=== PATIENT | male | born 1965 | race Caucasian/White ===

== ENCOUNTER 2016-10-05 19:47 | Emergency (ER) | payer OTHER ==
--- NOTE | 2016-10-06 08:13 | ER ---
ADMIT: 10/05/2016 RM/LOC: ER [facility] MR#: [id number] [address] [id number] THOMAS SHIRLEY [address] [place] [address] Emergency Room Report SEX: M AGE: 50 : 1965 DATE: 10/05/2016 The patient is a 50-year-old male, complaining of sore throat for the past 2 days without fevers, chills, or rash. Exam remarkable for exudative pharyngitis with uvular edema, treated with clindamycin 450 mg load in department, 300 mg q.i.d. x10 days, prednisone 60 mg load in department and 60 mg q.a.m. x5 days. Warm and salt water gargles. Quit smoking and follow up Dr. Jose as needed. Thomas Barker MD/ tai JOB #: [id number] CC: Thomas Barker MD, Attending Physician Courtney Russ MD, Family Physician Eligio Jose MD
== END 2016-10-05 20:30 | disposition home or self-care (01) ==
LOC: ER 19:47
DX: J02.9 Acute pharyngitis, unspecified (principal); F17.210 Nicotine dependence, cigarettes, uncomplicated; Z88.0 Allergy status to penicillin